=== PATIENT | male | born 1975 | race Caucasian/White ===

== ENCOUNTER 2025-06-12 19:35 | Emergency (ER) | payer MEDICARE, SELFPAY ==
[2025-06-12 19:41] VITALS: BP 120/79
[2025-06-12 21:59] VITALS: BP 135/99; BMI 28.7
--- NOTE | 2025-06-12 22:48 | ED.MUSCINJ ---
HPI-Injury
General
Chief Complaint: Musculo-Skeletal Complaint
Source: patient
Exam Limitations: none
Time Seen by Provider: 06/12/25 22:18
Nursing documentation reviewed up to this point in time: agreed with
History of Present Illness-Injury
Is this injury a work related problem?: No
Is pt an associate of [facility]?: No
Initial Injury comments:
50-year-old male presents with left foot pain, he dropped a birdbath on it 6 months ago he has been walking on it, prior surgery on his left ankle many years ago, he is currently homeless living in his car, with his girlfriend, previously living in
[place],
Past History
Past History
ED Past Medical History: Psychiatric (Schizophrenia) and Other (Drug and alcohol abuse, previous tracheostomy. He states he takes no drugs and does not drink any alcohol any more.)
Social History
Tobacco: Former smoker (2 packs per day)
Alcohol: Former
Drug: Former user
Personal: Single (Homeless)
Living: homeless
Employment: Not employed
Family History
Family History: Other (Noncontributory)
Review of Systems
Review of Systems
All Other Systems: Not applicable
EENT: Reports no symptoms
Respiratory: Reports no symptoms
Musculoskeletal: Reports joint pain
Phy Exam
Physical Exam
Physical Exam:
Physical Exam
General: 50-year-old male slightly disheveled cooperative
Neck: No jaundice
Heart: s1/s2 regular rate and rhythm, no murmur. equal radial pulses.
Lungs: no acute respiratory distress. clear bilaterally
Neuro: alert and oriented. no focal neurological deficits
Skin: no rash
Psychiatric: Disheveled cooperative bit tangential but redirectable
Extremities: Tenderness over the left midfoot, surgical scar over the medial malleolus
Injury Course
Orders/Labs/Results
Orders:
Orders
06/12/25 22:45
CR Ankle - Left Min 3 Views Urgent
Reason For Exam: trauma
Foot, Left 3 View [CR Foot - Left Min 3 Views] Urgent
Comment:
Reason For Exam: trauma
*Radiology
Radiology exam reviewed: preliminary read by ED provider
*Pulse Oximetry
SaO2: 100
Oxygen Mode of Delivery: Room air
Patient hypoxic: no
*Critical Care Note
Total Time (30-74mins, 75-104mins- exclusive of procedures): Not Applicable
Update Note
Update Note:
Will check foot and ankle x-ray
Update, x-ray noted no obvious fracture will place in a Ortho boot
ED Attending Note
-
Portions of this chart may have been created with voice recognition software.� Occasional wrong word or��sound alike� substitutions may have occurred due to the inherent limitations of voice recognition software.
Discharge Plan
Departure
Patient Disposition: Home (Routine Discharge)
Date of Disposition: 06/12/25
Time of Disposition: 23:32
Patient with high blood pressure during this ER visit?: No
Condition: Good
Discharge Problem:
Contusion
Instructions: Contusion (DC), Splint Care
Prescriptions:
No Action
celecoxib 100 MG capsule
100 mg PO BID Qty: 30 0RF
Referrals:
UNKNOWN - PT DOES,NOT KNOW [Family Provider]
Activity Restrictions/Additional Instructions:
Use ice and Tylenol and walking shoe
Interventions
Interventions:
*Risk Screen - Suicide Last Done: 06/12/25 19:41
*General Assessment Last Done: 06/12/25 21:59
*Neglect/Abuse Screening Last Done: 06/12/25 19:41
*ED- Fall Risk Assessment Last Done: 06/12/25 21:59
*ED COVID-19 Vaccine History Last Done: 06/12/25 21:59
ED-Musculoskeletal Assessment Last Done: 06/12/25 21:59
Discharge Date and Time
Print Language: PASHTO
[2025-06-13 00:22] VITALS: BP 130/92
== END 2025-06-13 00:05 | disposition home or self-care (01) ==
LOC: EMR 19:35
PROVIDERS: EMERGENCY PHYSICIAN Emergency Medicine
DX: S90.31XA Contusion of right foot, initial encounter (principal); W20.8XXA Other cause of strike by thrown, projected or falling object, initial encounter; Z59.02 Unsheltered homelessness; Z87.891 Personal history of nicotine dependence
CPT/HCPCS: 99283; 73610; 73630